=== PATIENT | female | born 1970 | race Caucasian/White ===

== ENCOUNTER 2024-04-18 08:34 | Day surgery (SDC) | payer OTHER, SELFPAY ==
--- NOTE | 2024-04-18 09:05 | PCM.HP.BLA ---
History and Physical Date of Admission: 04/18/24 The patient is examined and there are no changes to the H&P dated 04/17/2024. Informed consent was obtained for repair of right torn earlobe. Assessment & Plan Assessment/Plan (1) Torn earlobe: QUALIFIERS: Encounter type: sequela Laterality: right Qualified Code(s): S01.311S - Laceration without foreign body of right ear, sequela PLAN: Plan For earlobe repair.
[2024-04-18 09:09] VITALS: BP 119/93; PULSE 90; RESP 16; TEMP 36.5; O2SAT 100; BMI 28.8
[2024-04-18 09:34] VITALS: BP 119/84; BP 120/87; O2SAT 98; O2SAT 99
[2024-04-18] MEDS: Lidocaine 1% /Epi 1:100 9 ML, Sodium Bicarbonate 1 MEQ OPERA.SITE (09:46)
--- NOTE | 2024-04-18 10:19 | DCINST_ITS ---
Discharge Instructions Dressing / Incision Additional Dressing/Incision Instructions:: Keep the Steri-Strips dry. If they fall off, apply antibiotic ointment (like Neosporin, bacitracin, or triple antibiotic ointment) daily. Take the oral antibiotic (Keflex) 2 times a day until finished. Keep your back elevated (recliner position) for the next 2 nights to help reduce swelling and bruising. Follow Up Care Please Follow Up With: Jodi Chavarria MD When: In 1 to 2 weeks Test Results: Test results from this visit will be discussed in further detail at your follow- up appointment, if applicable. Discharge Plan Admission Attending Provider: Jodi Chavarria Primary Care Provider: Ivis Santana Instructions Print Language: Prydeinig Discharge Orders/Prescriptions Prescriptions: New cephalexin 500 mg capsule 500 mg PO BID 5 Days Qty: 10 0RF No Action Mounjaro 10 mg/0.5 mL pen injector 10 mg subcut QWEEK lisinopril 20 mg tablet 20 mg PO BID Referrals / Follow Up: Ivis Santana PA-C [Primary Care Provider] - Disposition Disposition (needs filled in before D/C Order can be placed): Home, Self Care
--- NOTE | 2024-04-18 10:21 | PCM.OPRPT ---
Problems Associated Problem List Diagnoses (1) Encounter for cosmetic procedure: (2) Torn earlobe: Report of Operation Date of Procedure: 04/18/24 Pre-Operative Diagnosis: Right torn earlobe resulting from earring Post-Operative Diagnosis: Same Surgery/Procedure Performed:: Repair right torn earlobe (excision skin margins and intermediate closure) Surgeon: Jodi Chavarria Type of Anesthesia: Local Estimated Blood Loss (mL): Minimal Description of Procedure: The patient presents for right earlobe repair following an earring pulling through the site. She presents for right earlobe repair. The patient is brought to the operating room and placed on the operating room table in the supine position. The right ear is prepped and draped in the usual sterile fashion. Initially began with injecting 1% Xylocaine with epinephrine. Following this, the skin edges are excised using the Ellman cautery. Hemostasis is controlled with cautery. The wound is then closed in layers using a Vicryl suture in the subcutaneous tissue. Skin edges are approximated with a running and interrupted plain gut suture. Dermabond and Steri-Strips were placed on the site. She tolerated the procedure well was taken to the recovery area in an awake and stable condition. Needle and sponge counts are correct. Complications None Admit VTE Documentation VTE Mechan Device Prophylaxis: None Reason prophylaxis not ordered:: Treatment Not Indicated
[2024-04-18 10:25] VITALS: BP 119/93; BP 125/85; PULSE 71; RESP 16; TEMP 36.5; O2SAT 100
== END 2024-04-18 10:45 | disposition home or self-care (01) ==
LOC: SDC 08:39 → AC 08:40
PROVIDERS: PCP Family Medicine; Referring Provider Plastic Surgery; Visit Provider Plastic Surgery
PROC: (CPT 12051; principal; 2024-04-18 09:10)
DX: Z41.1 Encounter for cosmetic surgery (principal); S01.311S Laceration without foreign body of right ear, sequela
CPT/HCPCS: 12051

== ENCOUNTER 2024-11-20 07:34 | Day surgery (SDC) | payer OTHER, SELFPAY ==
[2024-11-20] VITALS (8 sets, daily range): BP systolic 88–116; BP diastolic 62–89; PULSE 74–85; RESP 16–18; TEMP 36.3–36.8; O2SAT 98–100; BMI 27.1
--- NOTE | 2024-11-20 07:57 | H&P.OPEN ---
[facility] - General General Date of Service: 11/20/24 HPI Narrative SABINE HARTMANN, is a 54 F who presents for screening colonoscopy. Patient never had previous colonoscopy. Patient's father did have cancer in his liver unsure where it started?prostate or colon no obvious colon mass that family is aware of on CT --at age 89, patient has bowel movements daily denies any blood. Patient denies any chronic abdominal pain/nausea/vomiting/reflux. [facility] Medical History Wears contact lenses Wears glasses Alcohol use Non-smoker Type 2 diabetes mellitus HTN (hypertension) History of kidney stones History of hypertension History of diabetes mellitus History of seasonal allergies Home Medications ?Medication ?Instructions ?Recorded ?Last Taken ?Type lisinopril 20 mg tablet 10 mg PO BID 04/10/24 11/18/24 History tirzepatide 10 mg/0.5 mL 10 mg subcut QWEEK 04/10/24 11/08/24 History subcutaneous pen injector (Justinundestiniro) ascorbate calcium (vitamin C) 500 500 mg PO QDAY 09/23/24 11/18/24 History mg tablet magnesium citrate 100 mg tablet 100 mg PO QDAY 09/23/24 11/18/24 History multivitamin 1 tab PO QDAY 09/23/24 11/18/24 History ondansetron 4 mg disintegrating 4 mg PO Q8H PRN nausea and vomiting 09/23/24 Unknown History tablet progesterone micronized 200 mg 200 mg PO QHS 09/23/24 11/18/24 History capsule zinc gluconate 30 mg tablet 30 mg PO QDAY 09/23/24 11/18/24 History Allergy/AdvReac Type Severity Reaction Status Date / Time No Known Allergies Allergy Verified 11/20/24 07:45 Family History Mother Hypertension Osteoporosis Father Hypertension High cholesterol Liver cancer Possible colon mets Prostate cancer Sister Hypertension Osteoporosis Surgical History H/O knee surgery Social History household members: spouse current occupational status: employed Smoking Status: Never smoker alcohol intake: current details: socially substance use type: does not use additional social history: denies edible, denies vaping, denies marijuana use, denies aspirin use, ibuprofen as needed. Past Medical/Surgical History Planned Operation Planned Operative Procedure(s): Colonoscopy - Open Access Previous Hospitalizations/Surgeries HX Hospitalizations: No Any Problems With Anesthesia: No You/Your Family Experience Fever (Hyperthermia) With Anes: No Cholinesterase deficiency: No Cardiovascular Hx Hypertension: Yes Respiratory Hx Sleep Apnea: No Hx Respiratory Tract Infection/Cold (presently): No Do You Snore Loudly (louder than talking or can be heard): No Do You Often Feel Tired/ Fatigued/ Sleepy Dring Daytime?: No Has Anyone Observed You Stop Breathing During Sleep?: No Result (for STOP score): Negative Smoking Status: Never smoker Neurological Does patient have nerve stimulator: No Reproduction : No Miscellaneous Recent Exposure to Contagious Disease: No Allergies No Known Allergies Allergy (Verified 11/20/24 07:45) Discharge Is Pt Admitted From a Skilled Nursing, or a Alf: No After D/C, Where Do you Plan to Go: Return Home Physical Exam Const alert, oriented x3 and no apparent distress HEENT normocephalic and head/scalp atraumatic Resp normal respiratory effort Cardio regular rate GI soft to palpation and non-tender; Negative for non-distended Palpation: Negative for guarding Extremity no clubbing, cyanosis or edema Skin no rashes or lesions noted Neuro CN's II-XII intact bilaterally Psych mental status grossly normal Assessment & Plan Assessment/Plan (1) Encounter for screening for malignant neoplasm of colon: Surgery Risks - Colonoscopy I discussed with the patient the risks of the procedure: Yes Risks Include but are not Limited To: Risks include but are not limited to: Bleeding, perforation requiring further surgery, inability to complete colonoscopy requiring barium enema.
--- NOTE | 2024-11-20 08:07 | PRE.ANES_ITS ---
ASA Classification* ASA Classification ASA Classification: 2 Assessment & Plan Anesthesia* Anesthesia Assessment Anesthesia Assessment: Discussed sedation and/or anesthesia options, risks, benefits, and alternatives with patient/parents/legal guardian/POA. Questions invited. The patient/parents/legal guardian/POA seems to understand and agrees to proceed with anesthesia plan. Reviewed the physical assessment, medical history, allergy history and patient home medications list prior to surgery/procedure/anesthetic and documented any changes. Performed airway and anesthesia risk assessments. 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 When Was Last Pacemaker Check QUESTION #4 FULL TEXT: You/Your Family Experience fever (hyperthermia) with Anesthesia Last Oral Intake Last Oral intake: Last Oral Intake NPO since 05:30 11/20/24 07:59 Meds taken in AM with sips of No 11/20/24 07:59 water? 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 Female Yes 11/15/24 14:02 HX of Motion Sickness Yes 11/15/24 14:02 HX of N/V After Surgery Yes 11/15/24 14:02 Non-Smoker Yes 11/15/24 14:02 Duration of Surgery greater No 11/15/24 14:02 than 60 minutes Number of Risk Factors 4 11/15/24 14:02 PONV Score Severe Risk 11/15/24 14:02 Height & Weight Height & Weight: Anesthesia: Height & Weight Height 5 ft 5 in 11/20/24 07:59 Weight: 74 kg 11/20/24 07:59 Body Mass Index (BMI) 27.1 11/20/24 07:59 Respiratory Assessment Respiratory Assessment - fertilizer processing 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 Has anyone observed you stop No 11/20/24 07:58 breathing during sleep? STOP Results Negative 11/20/24 07:58 QUESTION #5 FULL TEXT : Do you snore loudly (louder than talking or can be heard through closed doors)? 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 Specify any problems Hx of Preganancy in last 3 No 11/15/24 14:02 Months Nurse Filling Out Transfusion [email or web address] 11/15/24 14:02 & Questions: Date: 11/15/24 11/15/24 14:02 Time: 14:05 11/15/24 14:02 Patient unable to answer at this time (ie. 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: /Reproductive Hx- fertilizer processing supervisor Hx Now No 11/20/24 07:58 Gestational Age (in weeks): EDC: Hx Hx Para Hx Section SAB No 11/15/24 14:02 PFSH Medical History Wears contact lenses Wears glasses Alcohol use Non-smoker Type 2 diabetes mellitus HTN (hypertension) History of kidney stones History of hypertension History of diabetes mellitus History of seasonal allergies Home Medications ?Medication ?Instructions ?Recorded ?Last Taken ?Type lisinopril 20 mg tablet 10 mg PO BID 04/10/24 History tirzepatide 10 mg/0.5 mL 10 mg subcut QWEEK 04/10/24 11/08/24 History subcutaneous pen injector (Mounjaro) ascorbate calcium (vitamin C) 500 500 mg PO QDAY 09/2311/18/24 History mg tablet magnesium citrate 100 mg tablet 100 mg PO QDAY 5 11/18/24 History multivitamin 1 tab PO QDAY 09/23/2411/18 History ondansetron 4 mg disintegrating 4 mg PO Q8H PRN nausea and vomiting 09/23/24 Unknown History tablet progesterone micronized 200 mg 200 mg PO QHS 09/23/24 11/18/24 History capsule zinc gluconate 30 mg tablet 30 mg PO QDAY 09/23/2403/07 History Allergy/AdvReac Type Severity Reaction Status Date / Time No Known Allergies Allergy Verified 11/20/24 07:45 Family History Mother Hypertension Osteoporosis Father Hypertension High cholesterol Liver cancer Possible colon mets Prostate cancer Sister Hypertension Osteoporosis Surgical History H/O knee surgery Social History household members: spouse current occupational status: employed Smoking Status: Never smoker alcohol intake: current details: socially substance use type: does not use additional social history: denies edible, denies vaping, denies marijuana use, denies aspirin use, ibuprofen as needed. Review of Systems (Anesthesia) ROS Narrative System reviewed and no additional complaints, except as documented.
[2024-11-20 08:24] LABS: Bedside Glucose 86 mg/dL (74-106)
--- NOTE | 2024-11-20 10:12 | OP.CCLET_ITS ---
11/20/2024 Ivis Santana Re : Colonoscopy procedure for Maritza Santana This procedure was performed on Wednesday, November 20, 2024. My impressions and recommendations are as follows: Impressions : - The examination was otherwise normal on direct and retroflexion views. - Diverticulosis in the sigmoid colon. - No specimens collected. Recommendations : - Discharge patient to home. - Resume previous diet. - Continue present medications. - Repeat colonoscopy in 10 years for screening purposes. My findings are described in the full procedure note, which is enclosed. If I can be of further assistance, please feel free to contact me at Doctor phone number(s): , Work: . Sincerely, MD Kavita Yi MD 11/20/2024 10:12:19 AM This report has been signed electronically.
--- NOTE | 2024-11-20 10:12 | OP.COLON_ITS ---
Patient Name: Maritza Mcconnell Procedure Date: 11/20/2024 9:32 AM Date of : 1970 Age: 54 Procedure: Colonoscopy Indications: Screening for colorectal malignant neoplasm Providers: Kavita Contreras MD Referring MD: Kavita Contreras MD Medicines: Monitored Anesthesia Care Patient Profile: This is a 54 year old female. Last Colonoscopy: none. The patient's first colonoscopy is today. Complications: No immediate complications. Procedure: Pre-Anesthesia Assessment: - Prior to the procedure, a History and Physical was performed, and patient medications and allergies were reviewed. The patient's tolerance of previous anesthesia was also reviewed. The risks and benefits of the procedure and the sedation options and risks were discussed with the patient. All questions were answered, and informed consent was obtained. Prior Anticoagulants: The patient has taken no anticoagulant or antiplatelet agents. ASA Grade Assessment: Per anesthesia. After reviewing the risks and benefits, the patient was deemed in satisfactory condition to undergo the procedure. After I obtained informed consent, the scope was passed under direct vision. Throughout the procedure, the patient's blood pressure, pulse, and oxygen saturations were monitored continuously. The colonoscope was introduced through the anus and advanced to the cecum, identified by the appendiceal orifice, ileocecal valve and palpation. The colonoscopy was performed without difficulty. The patient tolerated the procedure well. The quality of the bowel preparation was good. Scope In: 9:47:33 AM Scope Withdrawal Time 0 hours 8 minutes 10 seconds Scope Out: 10:05:11 AM Total Procedure Duration Time 0 hours 17 minutes 38 seconds Findings: The perianal and digital rectal examinations were normal. The exam was otherwise without abnormality on direct and retroflexion views. Multiple small-mouthed diverticula were found in the sigmoid colon. Impression: - The examination was otherwise normal on direct and retroflexion views. - Diverticulosis in the sigmoid colon. - No specimens collected. Recommendation: - Discharge patient to home. - Resume previous diet. - Continue present medications. - Repeat colonoscopy in 10 years for screening purposes. Procedure Code(s): --- Professional --- G0121, PT, Colorectal cancer screening; colonoscopy on individual not meeting criteria for high risk Diagnosis Code(s): --- Professional --- Z12.11, Encounter for screening for malignant neoplasm of colon K57.30, Diverticulosis of large intestine without perforation or abscess without bleeding CPT copyright 2021 [employer]. All rights reserved. The codes documented in this report are preliminary and upon movie theater manager review may be revised to meet current compliance requirements. MD Kavita Yi MD 11/20/2024 10:12:19 AM This report has been signed electronically. Number of Addenda: 0 Note Initiated On: 11/20/2024 9:32 AM
--- NOTE | 2024-11-20 10:26 | PCM.POST.ANE ---
Anesthesia: Postop Eval I Current Vital Signs Temperature: 98.3 F Pulse Rate: 78 Blood Pressure: 92/62 Respiratory Rate: 16 Pulse Ox: 98 Oxygen Delivery Method: Room Air Assessment Airway patent: Yes Spontaneous unlabored respirations: Yes Mental status: Asleep nausea: No Vomiting: No Anesthesia Complication: No Fluid Hydration Crystalloid volume administer (ml): 75 Total IV fluid infused: 75 Progress Note Anesthesia document: Postop Eval 1 completed: Yes
--- NOTE | 2024-11-20 11:09 | PCM.POSTANE2 ---
Anesthesia Postop Eval I Sum Postop Eval Completion status Anesthesia document: Postop Eval 1 completed: Yes Anesthesia Postop Eval I Summary Anesthesia Postop Eval I Summary: Anesthesia Postop Eval I: Assessment Summary Airway patent Yes 11/20/24 10:27 [email or web address] Spontaneous unlabored Yes 11/20/24 10:27 [email or web address] respirations Mental status Asleep 11/20/24 10:27 [email or web address] nausea No 11/20/24 10:27 [email or web address] Vomiting No 11/20/24 10:27 [email or web address] Anesthesia Postop Eval I: Fluid Summary Crystalloid volume administer 75 11/20/24 10:27 [email or web address] (ml) Colloids volume administered ( ml) Blood Product volume administered (ml) Total IV fluid infused 75 11/20/24 10:27 [email or web address] Anesthesia Postop Eval I: Summary Notes Anesthesia Complication No 11/20/24 10:27 [email or web address] Anesthesia Complication Comment: Post-operative progress note Anesthesia: Postop Eval II Evaluation Mental status: Awake Pain Level: 0 nausea: No Vomiting: No
== END 2024-11-20 10:58 | disposition home or self-care (01) ==
LOC: EN 07:36 → AC 07:37
PROVIDERS: PCP Family Medicine; Referring Provider Family Medicine; Visit Provider Surgery
PROC: 0DJD8ZZ Inspection of Lower Intestinal Tract, Via Natural or Artificial Opening Endoscopic (ICD-10-PCS; CPT 45378; principal; 2024-11-20 09:10)
DX: Z12.11 Encounter for screening for malignant neoplasm of colon (principal); E11.9 Type 2 diabetes mellitus without complications; K57.30 Diverticulosis of large intestine without perforation or abscess without bleeding; I10 Essential (primary) hypertension; Z79.85 Long-term (current) use of injectable non-insulin antidiabetic drugs; Z87.442 Personal history of urinary calculi
CPT/HCPCS: G0121; 82962; A4216; J2405